=== PATIENT | male | born 1960 | race Caucasian/White ===

== ENCOUNTER 2016-09-28 05:22 | Day surgery (SDC) | payer BC ==
[~2016-09-28] VITALS: Ht 170.2 cm; Wt 86.3 kg
[~2016-09-28 05:22] MED LIST: ALBUTEROL SULF8.5 GM IH; AMOX TR-K CLV1 EAC4 PO; ASMANEX TW200 MICRO1 IH; ASPIR 8181 M1 PO; AZITHROMYCIN250 MG1 PO; CLARITIN10 M3 PO; FIORICET 50-301 EACH PO; FLUTICASONE P15.8 ML BOTH NARES; INDERAL80 MG PO; LIPITOR40 MG PO; MEDROL DOSEPAK4 MG PO; SINGULAIR10 MG PO; TAMIFLU75 MG PO; ZESTRIL40 MG PO
[2016-09-28 06:12] VITALS: BP 126/77
[2016-09-28] MEDS ORDERED: PERCOCET 5/31 TABLET PO (08:48)
[2016-09-28 10:18] VITALS: BP 140/82
[2016-09-28 11:30] VITALS: BP 145/64
== END 2016-09-28 11:40 | disposition home or self-care (01) ==
LOC: SDC 05:22
PROC: 0YQ50ZZ Repair Right Inguinal Region, Open Approach (ICD-10-PCS; principal; 2016-09-28)
DX: K40.90 Unilateral inguinal hernia, without obstruction or gangrene, not specified as recurrent (principal); D17.6 Benign lipomatous neoplasm of spermatic cord; I10 Essential (primary) hypertension; J45.909 Unspecified asthma, uncomplicated; K21.9 Gastro-esophageal reflux disease without esophagitis
CPT/HCPCS: C1781; J0131; J0330; J0690; J1100; J1170; J1200; J1885; J2250; J2405; J2710; J3010